=== PATIENT | male | born 1990 | race Caucasian/White ===

== ENCOUNTER 2018-03-23 21:21 | Emergency (ER) | payer OTHER ==
[~2018-03-23] VITALS: Ht 188 cm; Wt 68.0 kg
[2018-03-23] MEDS ORDERED: NORCO 5-325 TA1 EACH PO ×2 (21:37→21:38)
[2018-03-23] MEDS ORDERED: AMOXICILLIN 50500 MG PO (21:37)
[2018-03-23] MEDS ORDERED: PENICILLIN V P500 MG PO (21:38)
[2018-03-23 21:54] VITALS: BP 120/74
== END 2018-03-23 21:55 | disposition home or self-care (01) ==
LOC: M.ERS 21:21
DX: K04.7 Periapical abscess without sinus (principal); Z88.1 Allergy status to other antibiotic agents